=== PATIENT | female | born 1965 | race Caucasian/White ===

== ENCOUNTER 2018-04-20 11:29 | Day surgery (SDC) | payer BC ==
[~2018-04-20] VITALS: Ht 177.8 cm; Wt 75.0 kg
[2018-04-20] MEDS ORDERED: SODIUM CHLORIDE 0.9% 1,000 ML IV SCH (11:57)
[2018-04-20 12:01] VITALS: BP 132/77
[2018-04-20] MEDS ORDERED: PROG100C16 PO (12:01)
[2018-04-20] MEDS ORDERED: ESTR0.5T PO (12:01)
[2018-04-20] MEDS ORDERED: LEVO137T2 PO (12:01)
[2018-04-20 12:40] LABS: BASOPHILS # (AUTO) 0.02 x10^3/uL (0-0.1); BASOPHILS % (AUTO) 0 % (0-1); EOSINOPHILS # (AUTO) 0.17 x10^3/uL (0-0.4); EOSINOPHILS % (AUTO) 3 % (1-7); LYMPHOCYTES # (AUTO) 2.44 x10^3/uL (1-3.4); LYMPHOCYTES % (AUTO) 42 % (22-44); MD NO; MEAN CORPUSCULAR HEMOGLOBIN 29.8 pg (27.0-34.8); MEAN CORPUSCULAR HGB CONC 35.2 g/dL (32.4-35.8); MEAN CORPUSCULAR VOLUME 84.6 fL (80-100); MEAN PLATELET VOLUME 7.9 fL (7.4-10.4); MONOCYTES # (AUTO) 0.34 x10^3/uL (0.2-0.8); MONOCYTES % (AUTO) 6 % (2-9); NEUTROPHILS # (AUTO) 2.78 x10^3/uL (1.8-6.8); NEUTROPHILS % (AUTO) 48 % (42-75); PLATELET COUNT 306 x10^3/uL (130-400); RED BLOOD COUNT 4.85 x10^6/uL (3.82-5.3); RED CELL DISTRIBUTION WIDTH 13.2 % (9.6-15.2)
[2018-04-20 12:49] LABS: ANION GAP 8 mmol/L (5-15); CALCIUM 8.7 mg/dL (8.5-10.1); CHLORIDE 108 mmol/L (98-107); CREATININE 0.68 mg/dL (0.55-1.02); INTERNATIONAL NORMALIZED RATIO 0.97 (0.93-1.1); PROTHROMBIN TIME 10.3 Seconds (9.6-11.5)
[2018-04-20] MEDS ORDERED: EPHEDRINE 50 MG/ML, 1ML ONE (13:01)
[2018-04-20] MEDS ORDERED: CEFAZOLIN 1,000 MG ONE (13:01)
[2018-04-20] MEDS ORDERED: FENTANYL PF 250 MCG/5ML ONE (13:05)
[2018-04-20] MEDS ORDERED: MIDAZOLAM 1 MG/ML, 2ML ONE (13:05)
[2018-04-20] MEDS ORDERED: LIDOCAINE 1%, 20ML ONE (13:18)
[2018-04-20] MEDS ORDERED: ISOPROTERENOL 0.2MG/ML, 5ML ONE (14:19)
[2018-04-20] MEDS ORDERED: DEXAMETHASONE 4 MG/ML, 1ML ONE (14:47)
[2018-04-20] MEDS ORDERED: HEPARIN 1,000 UNITS/ML, 10ML ONE (14:47)
[2018-04-20] MEDS ORDERED: SUCCINYLCHOLINE 20 MG/ML, 10ML ONE (14:47)
[2018-04-20] MEDS ORDERED: ONDANSETRON 2MG/ML, 2ML ONE (14:47)
[2018-04-20] MEDS ORDERED: PROPOFOL 10 MG/ML, 20ML ONE (14:47)
[2018-04-20] MEDS ORDERED: ROCURONIUM 10MG/ML,5ML ONE (14:47)
[2018-04-20] MEDS ORDERED: FENTANYL PF 100 MCG/2ML IV PRN (15:30)
[2018-04-20] MEDS ORDERED: ALBUTEROL SULFATE 2.5 MG/3 ML NPPB PRN (15:30)
[2018-04-20] MEDS ORDERED: OXYcodone 5 MG/5 ML ORAL.SOL UDC PO PRN (15:30)
[2018-04-20] MEDS ORDERED: ACETAMINOPHEN 325 MG TABLET PO PRN (15:30)
[2018-04-20] MEDS ORDERED: PROMETHAZINE 25 MG/ML, 1ML IV PRN (15:30)
[2018-04-20] MEDS ORDERED: ONDANSETRON 2MG/ML, 2ML IV PRN (15:30)
[2018-04-20] MEDS ORDERED: PROMETHAZINE 12.5 MG SUPP PR PRN (15:30)
[2018-04-20] MEDS ORDERED: LABETALOL 5MG/ML, 20ML IV PRN (15:30)
[2018-04-20] MEDS ORDERED: DIAZEPAM 5 MG/ML, 2ML IVPush PRN (15:30)
[2018-04-20] MEDS ORDERED: HYDROmorphone 2 MG/ML, 1ML IVPush PRN (15:30)
[2018-04-20] MEDS ORDERED: ONDANSETRON ODT 8 MG PO PRN (15:30)
[2018-04-20] MEDS ORDERED: HALOPERIDOL 5 MG/ML IV PRN (15:30)
[2018-04-20] MEDS ORDERED: MEPERIDINE/PF 25MG/0.5ML IVPush PRN (15:30)
[2018-04-20] MEDS ORDERED: MIDAZOLAM 1 MG/ML, 2ML IV PRN (15:30)
[2018-04-20] MEDS ORDERED: MORPHINE SULFATE 4 MG/ML, 1ML IVPush PRN (15:30)
[2018-04-20] MEDS ORDERED: hydrALAzine 20 MG/ML, 1ML IV PRN (15:30)
[2018-04-20] MEDS ORDERED: EPHEDRINE 50 MG/ML, 1ML IVPush PRN (15:30)
[2018-04-20 15:56] VITALS: BP 115/73
[2018-04-20 19:21] VITALS: BP 101/64
== END 2018-04-20 19:00 | disposition home or self-care (01) ==
LOC: CACL 11:29 → 5SO 16:27 → CACL 19:00
PROVIDERS: ATTEND Internal Medicine Cardiovascular Disease
DX: I48.0 Paroxysmal atrial fibrillation (principal); I47.2 Ventricular tachycardia; Z95.0 Presence of cardiac pacemaker; Z87.891 Personal history of nicotine dependence
CPT/HCPCS: 36415; 80048; 85025; 85610; 85730; 93613; 93620; 93621; 93623; C1730; C1894; J0330; J0690; J1100; J1644; J2250; J2405; J2704; J3010; J3490; G0378